=== PATIENT | female | born 1950 | race Caucasian/White ===

== ENCOUNTER 2017-01-19 17:02 | Inpatient (IN) | payer OTHER ==
[2017-01-19 17:39] LABS: BASO% 0.3 % (0.0-0.8); EOS# 0.72 X1000 (0.0-0.7); EOS% 3.2 % (0.0-10.0); HEMATOCRIT 41.1 % (37.0-47.0); HEMOGLOBIN 12.7 g/dL (12.0-16.0); IMM GRAN# 0.07 X1000 (0.0-0.04); IMM GRAN% 0.3 % (0.0-0.5); LYMPH# 4.19 X1000 (1.2-3.4); LYMPH% 18.4 % (20.5-51.1); MANUAL DIFF NEEDED? NO; MCH 29.7 PG (27-31); MCHC 30.9 g/dL (33-37); MCV 96.3 FL (81-99); MONO# 1.61 X1000 (0.11-0.59); MONO% 7.1 % (1.7-9.3); MPV 9.6 FL (7.4-10.4); NEUT% 70.7 % (42.2-75.2); PLT 459 X1000 (130-400); RBC 4.27 XMIL (4.2-5.4)
--- NOTE | 2017-01-19 18:02 | PROVIDER DOCUMENTATION ---
HPI-Abdominal Pain/GI Problem <Susan Ahuja - Last Filed: 01/19/17 20:55> - General Source: patient - History of Present Illness-ABD Nature of Presenting Problems: 66 y/o wf c/o abdominal pain in the lower quadrants x 2 days ago. States she has had > 10 BMs a day. States there is blood in the stool, but not every time, that is bright red, mostly with wiping. Reports subjective fevers and chills. Denies vomiting, but reports nausea. Hx of diverticulitis, last hospitalized in June 2016 for this. No use of antibiotics recently. Has had 4 colonoscopies, with the last being <Ana Holden - Last Filed: 01/20/17 00:02> - General Chief Complaint: Abdominal Pain Stated Complaint: DIVERTICULITIS Time Seen by Provider: 01/19/17 17:59 Allergies/Adverse Reactions: Patient Allergies Allergy/AdvReac Type Severity Reaction Status Date / Time morphine AdvReac Intermediate "MAKES ME Verified 01/19/17 19:46 CRAZY" Home Medications: Home Medication List Medication Instructions Recorded Confirmed Last Taken Type Diazepam 10 mg PO TID 06/17/16 01/19/17 01/18/17 History Ezetimibe [Zetia] 10 mg PO QAM 06/17/16 01/19/17 01/18/17 History Hum Insulin NPH/Reg Insulin Hm 8 unit SQ QPM 06/17/16 01/19/17 01/18/17 History [Novolin 70-30 100 Unit/ml Vial] Hum Insulin NPH/Reg Insulin Hm 16 unit SQ QAM 06/17/16 01/19/17 01/18/17 History [Novolin 70-30 100 Unit/ml Vial] Oxycodone HCl/Acetaminophen 1 each PO Q4H PRN PRN 06/17/16 01/19/17 01/18/17 History [Percocet 10-325 mg Tablet] PRAVAstatin [Pravachol] 40 mg PO QHS 06/17/16 01/19/17 01/18/17 History Pantoprazole [Protonix] 40 mg PO DAILY@0700 06/17/16 01/19/17 01/18/17 History Carvedilol [Coreg] 12.5 mg PO Q12HR #60 tablet 06/24/16 01/19/1701/18/17 Rx Lactobacillus Rhamnosus GG 1 each PO BID #84 capsule 06/24/16 01/19/17 01/18/17 Rx [Culturelle] Omeprazole 40 mg PO DAILY #90 capsule. 06/24/16 01/19/17 01/18/17 Rx Polyethylene Glycol 3350 [Miralax] 17 gm PO DAILY #0 powder, packet 06/24/1605/0201/18/17 Rx Review of Systems - Adult - REVIEW OF SYSTEMS - ADULT Constitutional: reports: see HPI, chills, fever, fatique Eyes: reports: no symptoms reported. denies: decreased vision, blurred vision, double vision, eye pain Ears, Nose, Mouth & Throat: reports: no symptoms reported. denies: ear pain, nose pain, throat pain Cardiovascular: reports: no symptoms reported. denies: chest pain Respiratory: reports: no symptoms reported. denies: cough, shortness of breath Gastrointestinal: reports: see HPI, abdominal pain, diarrhea, nausea, rectal bleeding, vomiting Genitourinary: reports: no symptoms reported. denies: dysuria, discharge, frequency, incontinence Musculoskeletal: reports: no symptoms reported. denies: bone pain, back pain, muscle aches Integumentary: reports: no symptoms reported. denies: rash Neurological: reports: no symptoms reported. denies: headache/migraines Psychiatric: reports: no symptoms reported Endocrine: reports: no symptoms reported Hematologic/Lymphatic: reports: no symptoms reported Allergic/Immunologic: reports: no symptoms reported All Other Systems: Reviewed and Negative <Ana Holden - Last Filed: 01/20/17 00:02> Past History - Adult - PAST MEDICAL HISTORY-ADULT Review of Records: reports: Old Records Reviewed, Nursing Assessment Review, Medications Reviewed Major Childhood Illnesses: reports: denies history Cardiovascular: reports: CAD (CABG), HTN Respiratory: reports: denies history Gastrointestinal: reports: diverticulosis Obstetrical/Gynecological: reports: denies history Genitourinary: reports: denies history Musculoskeletal: reports: denies history Neurological: reports: denies history Endocrine/Immune: reports: denies history Other Conditions: reports: denies history - PRIOR SURGERIES/PROCEDURES Surgical/Procedure History: reports: other (pancreatic, adrenal, spleen ) - FAMILY HISTORY Family History: reviewed, not pertinent - SOCIAL HISTORY Smoking: denies Substance Use: none/never Alcohol Use Frequency: never <Ana Holden Margie - Last Filed: 01/20/17 00:02> Physical Exam-General - PHYSICAL EXAM-ADULT Initial Vital Signs Reviewed: Yes - CONSTITUTIONAL General Appearance: appears well, alert, no apparent distress - EYES Eyes: PERRL/EOMI, pink conjunctivae - HEAD, EARS, NOSE, MOUTH & THROAT HENMT: normocephalic/atraumatic, moist mucous membranes - NECK Neck: non-tender, full range of motion, supple, normal inspection. negative: lymphadenopathy - RESPIRATORY Respiratory: chest non-tender, lungs clear, normal breath sounds, no pleuratic chest pain, no respiratory distress, no accessory muscle use. negative: respiratory distress, decreased breath sounds, accessory muscle use, crackles, rales, rhonchi, wheezing - CARDIOVASCULAR Cardiovascular: normal peripheral pulses, regular rate, rhythm - GASTROINTESTINAL (ABDOMEN) Abdominal Exam: normal bowel sounds, soft, no organomegaly, no pulsatile mass, tenderness (lower quadrant) - MUSCULOSKELETAL Extremity: normal gait Peripheral Pulses: dorsalis-pedis (R): 2+, dorsalis-pedis (L): 2+ - SKIN Integumentary: normal color, normal turgor, warm/dry - NEUROLOGIC Neurologic: grossly normal, no motor/sensory deficits - PSYCHIATRIC Psych/Mental Status: normal mood/affect, normal thought content, normal thought process, oriented x 3 <Ana Holden Margie - Last Filed: 01/20/17 00:02> Progress - EKG 1 Time of EKG reading by physician:: 19:17 EKG Read and Signed by:: Chapin Esquivel EKG Interpretation (*Must complete 3 of following elements*): Abnormal Rate: 89 Rhythm: NSR QRS: other (low voltage QRS) Comments: can not rule out anterior infarct, age undetermined. - CT/MRI 1 CT Study: Abdomen, Pelvis Impression: Abnormal (Proximal right ureter is dilated similar to 8-2-15. Proximal left ureter is dilated. Has developed since the prior exam. No renal stones. Cholecystectomy. Splenectomy. Partial pancreatectomy. Colitis to the descending and sigmoid colon. No abscess. No free air. Small fat filled anterior wall hernia. Aortic iliac graft.: Dr. Lawrence- radiologist) - CONSULTS/PCP/HOSPITALIST Notification #1 *Consult/PCP/Hospitalist*: Dr. Salgado- Hospitalist DMM Time Discussed: 20:59 Reason/Comments: ABD pain, diarrhea Consult Disposition: Will see in ED, Admit <Susan Ahuja - Last Filed: 01/19/17 20:55> - PLAN OF CARE/RESULTS Progress/Plan/Lab Results: Vital Signs Temp Pulse Resp BP Pulse Ox 01/19/17 22:28 84 18 112/85 97 01/19/17 21:45 87 14 143/71 97 01/19/17 21:29 88 14 143/71 98 01/19/17 20:00 86 22 140/60 97 01/19/17 19:41 88 14 129/51 100 01/19/17 19:27 86 19 142/71 99 01/19/17 17:13 99.4 F 104 H 18 159/61 92 L morphine Adverse Reaction (Intermediate, Verified 01/19/17 19:46) "MAKES ME CRAZY" Diazepam 10 mg PO TID 06/17/16 Ezetimibe [Zetia] 10 mg PO QAM 06/17/16 Hum Insulin NPH/Reg Insulin Hm [Novolin 70-30 100 Unit/ml Vial] 8 unit SQ QPM Hum Insulin NPH/Reg Insulin Hm [Novolin 70-30 100 Unit/ml Vial] 16 unit SQ QAM 06/17/16 Oxycodone HCl/Acetaminophen [Percocet 10-325 mg Tablet] 1 each PO Q4H PRN PRN PRAVAstatin [Pravachol] 40 mg PO QHS 06/17/16 Pantoprazole [Protonix] 40 mg PO DAILY@0700 06/17/16 Carvedilol [Coreg] 12.5 mg PO Q12HR #60 tablet 06/24/16 Lactobacillus Rhamnosus GG [Culturelle] 1 each PO BID #84 capsule 06/24/16 Omeprazole 40 mg PO DAILY #90 capsule. 06/24/16 Polyethylene Glycol 3350 [Miralax] 17 gm PO DAILY #0 powder, packet 06/24/16 Dietary Diet Clear Liquid Diet Start ThuJan 19 2155 I&O 01/18/17 01/19/17 01/20/17 06:59 06:59 06:59 Output Total 75 Balance -75 Laboratory 01/19/17 01/19/17 01/19/17 21:19 21:00 17:18 WBC 22.83 H RBC 4.27 Hgb 12.7 Hct 41.1 MCV 96.3 MCH 29.7 MCHC 30.9 L RDW Std Deviation 13.9 Plt Count 459 H MPV 9.6 Immature Gran % (Auto) 0.3 Neut % (Auto) 70.7 Lymph % (Auto) 18.4 L [place] % (Auto) 7.1 Eos % (Auto) 3.2 Baso % (Auto) 0.3 Immature Gran # (Auto) 0.07 H Neut # (Auto) 16.18 H Lymph # (Auto) 4.19 H [place] # (Auto) 1.61 H Eos # (Auto) 0.72 H Baso # (Auto) 0.06 Sodium Potassium 6.1 H* Chloride Carbon Dioxide Anion Gap BUN Creatinine Estimated GFR/1.73 m2 BUN/Creatinine Ratio Glucose Calculated Osmolality Calcium Total Bilirubin AST ALT Alkaline Phosphatase Total Protein Albumin Globulin Albumin/Globulin Ratio Amylase Lipase Urine Source CLEAN CATCH Urine Color YELLOW Urine Turbidity CLEAR Urine pH 5.0 Ur Specific [place] 1.011 Urine Protein NEGATIVE Ur Glucose (Stick) NEGATIVE Ur Ketones (Stick) NEGATIVE Urine Blood NEGATIVE Urine Nitrite NEGATIVE Urine Bilirubin NEGATIVE Urobilinogen Dipstick NORMAL Urine Leukocytes NEGATIVE Urine WBC (Auto) <10 Urine RBC (Auto) <10 U Epithel Cells (Auto) <10 Urine Bacteria (Auto) NEGATIVE 01/19/17 17:18 WBC RBC Hgb Hct MCV MCH MCHC RDW Std Deviation Plt Count MPV Immature Gran % (Auto) Neut % (Auto) Lymph % (Auto) [place] % (Auto) Eos % (Auto) Baso % (Auto) Immature Gran # (Auto) Neut # (Auto) Lymph # (Auto) [place] # (Auto) Eos # (Auto) Baso # (Auto) Sodium 134 L Potassium 6.4 H* Chloride 98 Carbon Dioxide 25 Anion Gap 11 BUN 47 H Creatinine 1.6 H Estimated GFR/1.73 m2 32 BUN/Creatinine Ratio 29 Glucose 147 H Calculated Osmolality 283 Calcium 9.9 Total Bilirubin 0.22 AST 18 ALT 15 Alkaline Phosphatase 111 H Total Protein 7.2 Albumin 3.8 Globulin 3.4 Albumin/Globulin Ratio 1.1 Amylase 22 Lipase 8 L Urine Source Urine Color Urine Turbidity Urine pH Ur Specific [place] Urine Protein Ur Glucose (Stick) Ur Ketones (Stick) Urine Blood Urine Nitrite Urine Bilirubin Urobilinogen Dipstick Urine Leukocytes Urine WBC (Auto) Urine RBC (Auto) U Epithel Cells (Auto) Urine Bacteria (Auto) Orders Category Date Time Status Admit - [facility] - [facility] Routine AdmDCTranf 01/19/17 23:51 Ordered Activity - Up with Assistance ORDERED Care 01/19/17 23:51 Active Apply Mechanical Device [QM] ORDERED Care 01/19/17 23:51 Active FSBS/Accucheck Result AC + HS Care 01/19/17 23:51 Active Intake and Output-Strict ORDERED Care 01/19/17 23:51 Active Nursing- MD Consult Request ROUTINE Care 01/19/17 23:51 Active Saline Loc NOW Care 01/19/17 18:06 Completed Vital Signs Order Q 8-HR ASSESS Care 01/19/17 23:51 Active MD [Physician/Provider Consults] Routine Cons 01/19/17 23:51 Ordered Clear Liquid Diet Diet 01/19/17 21:55 Active ABDOMEN/PELVIS W/O CONTRAST [CT] Stat Exams 01/19/17 18:06 Completed AMYLASE [CHEM] Stat Lab 01/19/17 17:18 Completed BASIC METABOLIC PANEL [CHEM] Routine Lab 01/20/17 06:00 Ordered CBC WITH DIFF [HEME] Routine Lab 01/20/17 06:00 Ordered CBC WITH ELECTRONIC DIFF [HEME] Stat Lab 01/19/17 17:18 Completed COMPREHENSIVE METABOLIC PANEL [CHEM] Stat Lab 01/19/17 17:18 Completed LACTOFERRIN STOOL [DELONG] Stat Lab 01/19/17 23:51 Uncollected LIPASE [CHEM] Stat Lab 01/19/17 17:18 Completed POTASSIUM [CHEM] Stat Lab 01/19/17 21:00 Completed STOOL CULTURE [RM] Stat Lab 01/19/17 18:47 Uncollected Stool [C DIFF TOXIN] [STOOL] Stat Lab 01/19/17 18:47 Uncollected TSH Routine Lab 01/20/17 06:00 Ordered UA Reflex [URINALYSIS W/POSS RFLX CULT] [URINALYSIS] Lab 01/19/17 21:19 Completed Stat 0.9% Sodium Chloride Inj [Ns] 1,000 ml Med 01/19/17 23:51 Ordered IV 100 mls/hr 0.9% Sodium Chloride Inj [Ns] 1,000 ml Med 01/19/17 18:06 Discontinued IV 999 mls/hr Ciprofloxacin 400 mg/D5w [Cipro 400 mg/D5w] 200 ml Med 01/19/17 23:51 Ordered IV Q12H Diazepam [Valium] Med 01/20/17 09:00 Ordered 10 mg PO TID Hydromorphone [Dilaudid] Med 01/19/17 18:46 Discontinued 1 mg IV NOW ONE Insulin Human Regular [Humulin R] Med 01/20/17 07:00 Ordered See Protocol SUBQ 0700,1100,1600,2100 Levofloxacin 750 mg/D5w [Levaquin 750 mg/D5w] 150 ml Med 01/19/17 20:57 Discontinued IV NOW Metronidazole 500 mg/Ns [Flagyl 500 mg/Ns] 100 ml Med 01/19/17 20:57 Discontinued IV NOW Metronidazole 500 mg/Ns [Flagyl 500 mg/Ns] 100 ml Med 01/20/17 05:00 Ordered IV Q8HR Omeprazole [Omeprazole] Med 01/20/17 09:00 Ordered 40 mg PO DAILY Ondansetron [Zofran] Med 01/19/17 18:46 Discontinued 4 mg IV NOW ONE Oxycodone/APAP 10 mg/325 mg [Percocet-10] Med 01/19/17 23:51 Ordered 1 each PO Q4H PRN PRN Sodium Polystyrene [Kayexalate] Med 01/19/17 18:18 Discontinued 30 gm PO NOW ONE Telemetry [OM.EQ] Routine Oth 01/19/17 23:51 Active Transfer/Admit Order [TRANSFER] Routine Transfer 01/19/17 21:54 Completed <Ana Holden - Last Filed: 01/20/17 00:02> Departure <Susan Ahuja - Last Filed: 01/19/17 20:55> - Departure Time of Disposition Order: 21:03 Certified Medical Emergency: Emergent <Ana Holden - Last Filed: 01/20/17 00:02> - Departure DIAGNOSIS: Colitis, Hyperkalemia Leukocytosis Qualifiers: Leukocytosis type: lymphocytosis Qualified Code(s): D72.820 - Lymphocytosis ( symptomatic) Disposition: ADMITTED INPATIENT 09 Condition: Stable Attestation - Physician/ KOMAL Attestation Patient care was provided by Advanced Practice Provider:: Yes Advanced Practice Provider:: Ana Holden Advanced Practice Provider documentation review:: The Mid-level provider documentation, treatment plan and medical decision making was reviewed by the physician who agrees with all treatment and medical decision making by the MLP. <Ana Holden - Last Filed: 01/20/17 00:02> Physician Attestation
[2017-01-19 18:04] LABS: ALBUMIN 3.8 g/dL (3.5-5.0); CALCIUM 9.9 mg/dL (8.8-10.2); POTASSIUM 6.4 mmol/L (3.5-5.1); TOTAL BILIRUBIN 0.22 mg/dL (0.20-1.00); TOTAL PROTEIN 7.2 g/dL (6.3-8.3)
[2017-01-19] MEDS ORDERED: NS 1,000 ML IV ONE (18:06)
[2017-01-19] MEDS ORDERED: KAYEXALATE PO ONE (18:18)
[2017-01-19] MEDS ORDERED: DILAUDID IV ONE (18:46)
[2017-01-19] MEDS ORDERED: ZOFRAN IV ONE (18:46)
[2017-01-19] MEDS ORDERED: LEVAQUIN 750 MG/D5W 150 ML IV ONE (20:57)
[2017-01-19] MEDS ORDERED: FLAGYL 500 MG/NS 100 ML IV ONE (20:57)
--- NOTE | 2017-01-19 21:12 | Diag Imaging Result Document ---
PROCEDURE NAME: ABDOMEN/PELVIS W/O CONTRAST - 01/19/2017 STUDY: CT abdomen and pelvis without oral or intravenous contrast. PROTOCOL: Dose reduction protocol. COMPARISON: Compared to 06/17/2016 The gallbladder has been removed. The spleen apparently has been removed as has a portion of the pancreas. No focal hepatic abnormality identified on this noncontrasted exam. Normal adrenal glands. There is moderate to prominent hydronephrosis to the proximal and mid right ureter to the level of the crossing of the iliac graft. This is similar to the prior exam. Moderate left proximal hydronephrosis has developed since the prior exam. This also extends to the level of the graft. There is an aortic iliac graft similar to the prior exam. No renal stones. There is thickening to the wall of the descending and sigmoid colon. There are scattered diverticula. No bowel obstruction. No abscess. No free air. There is a small fat filled anterior abdominal wall hernia. The uterus has been removed or is small. The urinary bladder is distended and appears normal. IMPRESSION: 1. Descending and sigmoid colitis. 2. Cholecystectomy, splenectomy, and partial pancreatectomy. 3. Bilateral hydronephrosis to the proximal and mid ureters. Transition occurs at the level of the iliac grafts. 4. Small fat filled anterior abdominal wall hernia. A preliminary report was given at 8:41 p.m.
[2017-01-19 21:29] LABS: URINE CULTURE NEEDED? NO; URINE MICRO REVIEW NEEDED? NO; URINE SOURCE CLEAN CATCH
[2017-01-19 21:36] LABS: BILIRUBIN URINE NEGATIVE (NEGATIVE); BLOOD URINE NEGATIVE (NEGATIVE); COLOR YELLOW; GLUCOSE URINE NEGATIVE (NEGATIVE); LEUKOCYTES URINE NEGATIVE (NEGATIVE); NITRITE URINE NEGATIVE (NEGATIVE); PROTEIN URINE NEGATIVE (NEGATIVE); SP GRAVITY URINE 1.011; TURBIDITY URINE CLEAR (CLEAR); UROBILINOGEN URINE NORMAL (NORMAL)
[2017-01-19 21:38] LABS: UR EPITHELIAL CELLS <10 /HPF (<10); URINE BACTERIA NEGATIVE /HPF; URINE RBC <10 /HPF (<10); URINE WBC <10 /HPF (<10)
[2017-01-20] MEDS: PERCOCET-10 PO PRN ×5 (00:08→20:26)
[2017-01-20] MEDS: CIPRO 400 MG/D5W 200 ML IV SCH ×2 (01:02→12:08)
[2017-01-20] MEDS: NS 1,000 ML IV SCH ×3 (01:03→20:27)
--- NOTE | 2017-01-20 03:57 | HISTORY AND PHYSICAL ---
CHIEF COMPLAINT: Diarrhea, abdominal cramping x3 days. HISTORY OF PRESENTING ILLNESS: A 66-year-old female with a history of diabetes mellitus type 2, hyperlipidemia, and GERD who presented to the emergency department complaining of diarrhea that he had been ongoing for the past 3 days. She states that she was getting weak. She also noticed some mild blood at times when she wiped. She states that the symptoms were worsening. Subsequently, she had come to the emergency department. In the ER, she was evaluated. She was found to have an elevated potassium which was stabilized in the ER. Due to her presenting symptoms, it was thought that she would need hospitalization for further management. At the time of my examination, she had denied any headache, fever, chills, chest pain, shortness of breath, hemoptysis, or any weight changes but complained of having diarrhea and feeling weak. PAST MEDICAL HISTORY: Includes diabetes mellitus type 2, hyperlipidemia, GERD. PAST SURGICAL HISTORY: Cholecystectomy, splenectomy, partial pancreatectomy. ALLERGIES: To morphine. CURRENT MEDICATIONS: As listed in the MAR. SOCIAL HISTORY: She denies any history of smoking, alcohol, or illicit drug use. FAMILY HISTORY: Positive for coronary artery disease in her father. REVIEW OF SYSTEMS: Twelve point review of systems listed as in the HPI. Other systems negative. PHYSICAL EXAMINATION: GENERAL: Cooperative, friendly female. She is resting comfortably now. VITAL SIGNS: Temperature 99.4 degrees, pulse 104, respirations 18, blood pressure 159/61, she is saturating 99%. HEENT: Atraumatic, normocephalic. Extraocular movements intact. PERRLA. NECK: Supple. CHEST: Clear to auscultation. CARDIOVASCULAR: Regular rate and rhythm. ABDOMEN: Soft. Positive bowel sounds. EXTREMITIES: No edema. NEUROLOGIC: She is awake, alert, oriented x3. : No bladder distention. SKIN: Warm. LABORATORIES AND STUDIES: WBC 22.83, hemoglobin 12.7, hematocrit 41.1, platelets 459,000. Sodium 134, potassium 6.4, chloride 98, CO2 is 25, BUN is 47, creatinine is 1.6, glucose is 147. ASSESSMENT: A 66-year-old female with a history of diabetes mellitus type 2, hyperlipidemia, and gastroesophageal reflux disease who presented to the emergency department with a 3 day history of persistent diarrhea. She had presented to the emergency department where she was found to have elevated potassium and this was stabilized in the emergency room. Due to her presenting symptoms, it was thought that she would need hospitalization for further management. 1. Acute diarrhea. 2. Colitis. 3. Hyperkalemia. 4. Diabetes mellitus type 2. 5. Acute kidney injury. PLAN: 1. We will admit patient to medical floor with telemetry. 2. We will continue supportive treatment with IV fluids, hydration, antiemetics. 3. We will monitor her electrolytes closely and make sure her potassium is trending down. 4. We will monitor blood glucose and continue patient on sliding scale insulin regimen. 5. We will monitor renal function and continue with hydration. 6. We will put patient on DVT prophylaxis with SCDs. 7. We will continue to follow and reassess.
[2017-01-20 05:18] LABS: BASO% 0.3 % (0.0-0.8); EOS# 1.69 X1000 (0.0-0.7); EOS% 8.1 % (0.0-10.0); HEMATOCRIT 36.8 % (37.0-47.0); HEMOGLOBIN 11.1 g/dL (12.0-16.0); IMM GRAN# 0.07 X1000 (0.0-0.04); IMM GRAN% 0.3 % (0.0-0.5); LYMPH# 5.36 X1000 (1.2-3.4); LYMPH% 25.7 % (20.5-51.1); MANUAL DIFF NEEDED? YES; MCH 29.4 PG (27-31); MCHC 30.2 g/dL (33-37); MCV 97.6 FL (81-99); MONO# 1.88 X1000 (0.11-0.59); MPV 9.5 FL (7.4-10.4); NEUT% 56.6 % (42.2-75.2); PLT 467 X1000 (130-400); RBC 3.77 XMIL (4.2-5.4)
[2017-01-20 05:27] LABS: EOS 8 % (1-10); LYMPHS 24 % (21-51); MONO 8 % (1-9)
[2017-01-20] MEDS: FLAGYL 500 MG/NS 100 ML IV SCH ×3 (05:30→20:23)
[2017-01-20 05:43] LABS: CALCIUM 9.6 mg/dL (8.8-10.2); POTASSIUM 5.5 mmol/L (3.5-5.1)
[2017-01-20] MEDS: HUMULIN R SUBQ SCH ×4 (08:50→22:32)
[2017-01-20] MEDS: VALIUM PO SCH ×3 (09:33→17:30)
[2017-01-20] MEDS: PRILOSEC PO SCH (09:33)
--- NOTE | 2017-01-20 15:43 | PROGRESS NOTE ---
DATE: 01/20/2017 SUBJECTIVE: This patient states that she is feeling better. She is still complaining of abdominal bloating and right-sided abdominal pain. This patient states that she has been noticing blood in the stools. Gastroenterology department has been consulted and will continue with the antibiotics. OBJECTIVE: Vital Signs: Temperature 97.6 degrees, pulse 64, respiratory rate 18, blood pressure 112/62, oxygen saturation 100% on 2 L of nasal cannula. HEENT: Head normocephalic. No trauma. PERRLA. Neck: Supple. No JVD. No masses. Central trachea. Chest: Clear to auscultation. No wheezing. No rales. Cardiovascular: RRR. No murmurs. Abdomen: Soft. Mild tenderness to palpation in the right side of the abdomen. No signs of peritoneal irritation. Mild distention. Positive bowel sounds. Extremities: No edema. No clubbing. No cyanosis. Neurological: The patient is alert and oriented x3. No focal neurological deficits. LABORATORY: WBC 20.8, hemoglobin 11.1, hematocrit 36.8, platelets 467,000. Sodium 141, potassium 5.5, chloride 104, bicarbonate 27, BUN 33, creatinine 1.3, glucose 117, calcium 9.6. TSH 1.49. ASSESSMENT AND PLAN: 1. Descending and sigmoid colitis. This patient is still complaining of mild abdominal discomfort on the left side. I will continue for now with ciprofloxacin and Flagyl IV. Gastroenterology department has been consulted. We will follow their recommendations. This patient states that she has had bloody stools before. 2. Acute diarrhea. Apparently this is getting better. She is still having diarrhea. We will continue with IV hydration and monitoring the electrolytes. 3. Hyperkalemia. Compared with yesterday it looks better. We will continue to monitor. No treatment for now. 4. Type 2 diabetes. This is controlled. Continue with IV fluids. I will continue with sliding scale insulin. 5. Acute kidney injury. This is getting better. The creatinine decreased from 1.6 to 1.3. Will continue to monitor. 6. Gastroesophageal reflux disease. Continue with PPIs.
[2017-01-21] MEDS: CIPRO 400 MG/D5W 200 ML IV SCH ×2 (01:17→14:15)
[2017-01-21] MEDS: PERCOCET-10 PO PRN ×4 (03:09→19:46)
[2017-01-21] MEDS: NS 1,000 ML IV SCH ×2 (03:10→15:51)
[2017-01-21] MEDS: FLAGYL 500 MG/NS 100 ML IV SCH ×4 (05:36→23:38)
[2017-01-21] MEDS: HUMULIN R SUBQ SCH ×5 (06:40→23:37)
[2017-01-21 07:39] LABS: MANUAL DIFF NEEDED? NO
[2017-01-21 07:44] LABS: BASO% 0.3 % (0.0-0.8); EOS# 2.51 X1000 (0.0-0.7); EOS% 14.1 % (0.0-10.0); HEMATOCRIT 37.1 % (37.0-47.0); HEMOGLOBIN 11.2 g/dL (12.0-16.0); IMM GRAN# 0.04 X1000 (0.0-0.04); IMM GRAN% 0.2 % (0.0-0.5); LYMPH# 4.88 X1000 (1.2-3.4); LYMPH% 27.4 % (20.5-51.1); MCH 29.8 PG (27-31); MCHC 30.2 g/dL (33-37); MCV 98.7 FL (81-99); MONO# 1.27 X1000 (0.11-0.59); MONO% 7.1 % (1.7-9.3); MPV 9.2 FL (7.4-10.4); NEUT% 50.9 % (42.2-75.2); PLT 486 X1000 (130-400); RBC 3.76 XMIL (4.2-5.4)
[2017-01-21 08:07] LABS: AGAP 10; ALBUMIN 3.1 g/dL (3.5-5.0); ALKALINE PHOSPHATASE 80 U/L (32-104); BUN 14 mg/dL (8-22); CALCIUM 9.2 mg/dL (8.8-10.2); CHLORIDE 105 mmol/L (98-107); COSMO 283; GOT 11 U/L (10-30); GPT 9 U/L (10-36); POTASSIUM 4.8 mmol/L (3.5-5.1); SODIUM 141 mmol/L (136-145); TCO2 26 mmol/L (25-35); TOTAL BILIRUBIN 0.13 mg/dL (0.20-1.00); TOTAL PROTEIN 6.1 g/dL (6.3-8.3)
[2017-01-21] MEDS: VALIUM PO SCH ×3 (08:32→17:51)
[2017-01-21] MEDS: PRILOSEC PO SCH (08:32)
--- NOTE | 2017-01-21 11:26 | CONSULTATION ---
DATE OF CONSULTATION: 01/21/2017 CHIEF COMPLAINT: Diarrhea, abdominal cramps for 3-4 days. HISTORY OF PRESENT ILLNESS: This is a 66-year-old lady with a history of diabetes mellitus, presented to the emergency room with lower abdominal pain and a small amount of blood in the stool when she was wiped. She was admitted for further evaluation because CT scan showed colitis in the descending colon and sigmoid colon. PAST MEDICAL HISTORY: Diabetes type 2, hyperlipidemia, GERD. PAST SURGICAL HISTORY: Cholecystectomy, splenectomy, and partial pancreatectomy. ALLERGIES: Allergic to morphine. CURRENT MEDICATION: As listed in MAR. SOCIAL HISTORY: Denies any history of smoking, alcohol, or illicit drug use. FAMILY HISTORY: Positive for coronary artery disease. No history of inflammatory bowel disease or colon cancer. REVIEW OF SYSTEMS: A 12 point review was negative. PHYSICAL EXAMINATION: General: Reveals a pleasant lady, cooperative, resting comfortably. Vital signs: She is afebrile today. Pulse of 80, respiration 18, blood pressure 159/60, O2 saturation 99%. HEENT: No scleral icterus or conjunctival pallor. Neck: Supple. Trachea midline. Heart: Normal first and second heart sounds. Lungs: Clear. Abdomen: Minimally tender in the left lower quadrant. Bowel sounds present and normal. Extremities: Unremarkable. LABORATORY DATA: White count 22,000, normal hematocrit at 41. BUN 47, creatinine 1.6. IMPRESSION: 1. This is a 66-year-old lady with a history of diabetes type 2, presents with 3-day history of left lower quadrant abdominal pain and some blood stained stools. Her hematocrit is stable. It is either ischemic colitis or infectious colitis. She is actually doing better. Continue the current management. We will examine her colon after her white count comes back or if she gets any worse clinically. To me she said she is feeling much better. 2. Hyperkalemia. 3. Renal insufficiency. 4. Diabetes mellitus. PLAN: Our recommendation is continue IV fluid hydration and sliding scale insulin. We will follow and decide when to do a colonoscopy.
--- NOTE | 2017-01-21 13:37 | CONSULTATION ---
DATE OF CONSULTATION: 01/21/2017 REQUESTING PHYSICIAN: Dr. Hussein Sim. HISTORY OF PRESENT ILLNESS: Please patient is well known to me. I evaluated her mid last summer and I think in June, if my memory serves me, she had a CT scan that admission, was sick, and in the ICU. She was found to have bilateral hydronephrosis down to the iliac grafts placed by Dr. Tao. He was evaluated by Dr. Gonzales, who is her usual urologist, who tried to put in a standard retrograde, something of that nature. The patient claims he said that he could not get 1 in from starting in, she did need 1. Dr. Tao advised that there was no significant obstruction. There was hydro from the June 17 CT as compared to 01/19/2017 and there is no stated change on the reports and BUN and creatinine apparently are normal. Either way, she was admitted with descending left colitis of unstated etiology with a 17,000 white count, on antibiotic management. ALLERGIES: Are stated to be morphine. MEDICATIONS: Humulin R, Icar C, Lactobacillus, carvedilol, cholecalciferol, diazepam, Cipro, Flagyl, omeprazole, oxycodone, APAP, and a saline drip. I see no other listed medications for this admission. 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 PAST SURGICAL HISTORY: Includes an aortic aneurysm with aortobifemoral repair, pancreatectomy, adrenalectomy, suggested splenectomy on the CT. 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 Coronary bypass grafting and gallbladder attempted stent placement in the past. SOCIAL HISTORY: Counseled for nutrition. She is a prior historic smoker to 3 packs per day for many years and a nondrinker. The patient is disabled and retired. Does not exercise. Drinks coffee and tea. FAMILY HISTORY: No known relevant family history of kidney failure or kidney obstruction. She does have family members with diabetes, high blood pressure, and history of cancer. FAMILY PHYSICIAN: Dionicio Velasquez. REVIEW OF SYSTEMS: Constitutional: General fatigue and illness with left abdominal pain supported by the CT findings of left colitis, possible ischemic bowel disease from her history. Head and neck: No new loss of vision. Ears, Nose, and Throat: No new problems. Cardiac: No current chest pain. She does have high blood pressure. Respiratory: No shortness of breath. 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 Genitourinary: See history of present illness. Musculoskeletal: No arthralgias at this time. Neurologic: She has no history of stroke and no numbness, tingling, or radiculopathy. Psychologic: History of anxiety and depression. Endocrine: Significant for diabetes and probably cholesterol, hot flushes. Hematologic: Elevated white count. Allergies: Stated to be medicines/morphine. PHYSICAL EXAMINATION: Vital Signs: Revealed temperature max today 98.2, pulse 84, respirations 18, blood pressure 128/52, pulse 67, O2 saturation is 100%. She is receiving nasal cannula O2. HEENT: No head and neck masses are visibly apparent. Heart: With a regular rate. Respiratory: No respiratory distress at rest. Abdomen: With left abdominal tenderness, left upper quadrant and left lower quadrant with deep pressure. No guarding. No rebound. No flank pain. Genitourinary: As per CT scan review 01/20/2016 films compared to 06/17/2016 film, so nominal minimal hydronephrosis with normal BUN and creatinine noted relevant to that discussion of 14 in 0.9 respectively. GFR greater than 60 mL which is normal and CT unchanged as stated. Extremities: The range of motion of upper and lower extremities is acceptable for her age. Neurological: She is alert, oriented. She is pleasant. She does not at this time seem depressed or anxious about the issue. Obviously wants to get well and get out of the hospital as soon as possible. IMPRESSION: Bilateral hydronephrosis from the kidney down to the iliac vessels with inconsequential changes in renal function from relative narrowing or functional narrowing of the ureter, scarring from the iliac aortobifemoral bypass. PLAN: The plan for now is to do nothing because the patient wants nothing done. There is no evidence that intervention is going to help her as she has a normal BUN and creatinine at the moment. But either way, whenever we inquire about this illness she always brings up what Dr. Gonzales said. She certainly can see him. He is her regular doctor for this concern. But at the moment, there is really nothing to be done here at this time and if she continues on this path her health is going to precluded much intervention anyway in the near future. So, we are happy to follow up with her in the office if she wishes to, but when she saw us before she had decided to do nothing either way. We thank you for the referral.
--- NOTE | 2017-01-21 13:41 | PROGRESS NOTE ---
DATE: 01/21/2017 SUBJECTIVE: This patient states that she is feeling much better. She is not complaining about abdominal pain today. She does have abdominal distention and bloated, but compared with yesterday, she is much better. She is still having increased WBC. For now, we will continue with the same treatment. Probably this patient will be discharged tomorrow. OBJECTIVE: Vital Signs: Temperature 98.1, pulse 78, respiratory rate 20, blood pressure 137/49, oxygen saturation 100% on 2 L of nasal cannula. HEENT: Head normocephalic. No trauma. PERRLA. Neck: Supple. No JVD. No masses. Central trachea. Chest: Clear to auscultation. No wheezing. No rales. Cardiovascular: RRR. No murmurs. Abdomen: Soft, mild tenderness to palpation in the left side of the abdomen. No signs of peritoneal irritation. Mild to moderate distention. Positive bowel sounds. Extremities: No edema. No clubbing. No cyanosis. Neurological: The patient is alert and oriented x3. No focal neurological deficits. LABORATORY: WBC 17.8, hemoglobin 11.2, hematocrit 37.1, platelets 486. Sodium 141, potassium 4.8, chloride 105, bicarbonate 26, BUN 14, creatinine 0.9, glucose 113, calcium 9.2. Albumin 3.1. ASSESSMENT AND PLAN: 1. Descending and sigmoid colitis. This patient is not complaining today of abdominal pain, just upon palpation. I will continue for now with ciprofloxacin and Flagyl IV. Gastroenterology department is on board. We will continue to monitor and follow with the recommendation of gastroenterology. 2. Acute diarrhea. This is better, we will continue with IV hydration and monitoring the electrolytes. 3. Hyperkalemia, resolved. 4. Type 2 diabetes. This is controlled. Continue with IV fluids. 5. Acute kidney injury. This is getting better, the BUN and creatinine is normal today. 6. Gastroesophageal reflux disease. Continue with proton pump inhibitors.
--- NOTE | 2017-01-21 14:34 | PROGRESS NOTE ---
DATE: 01/21/2017 SUBJECTIVE: Patient currently resting in bed. Her abdominal pain is improving. She denies any fevers or rigors or chills. Denies any blood in the stools. OBJECTIVE: Vital signs: Temperature 98.1, pulse rate, blood pressure 137/49, saturating 89% on 2 L nasal cannula. General: Moderately built, moderately nourished, lying in bed, in no acute distress. HEENT: Mild pallor. No icterus. Neck: Supple. Abdomen: Soft, nontender, nondistended. Bowel sounds are present but hypoactive. No rebound. No guarding. Extremities: No cyanosis, clubbing, edema. Neurologic: She is alert, awake, oriented. LABORATORY DATA: Hemoglobin and hematocrit is 11.2, 37.1, white count of 17.8, platelet count of 486,000. MCV of 90.7. Sodium 140, potassium 4.8, chloride 105, bicarbonate 22 , anion gap 10, BUN of 14, creatinine 0.9, glucose 113, calcium 9.2, total bilirubin is 0.13, AST 11 , ALT 9. Alkaline phosphatase is 80. Total protein 6.1, albumin of 3.1, blood glucose of 178. Urinalysis is clear. Her stool for C. difficile toxin was negative and stool cultures preliminary negative for pathogens. IMAGING STUDIES: CT of abdomen and pelvis on 01/19/2017 showed: 1. Descending sigmoid colitis. 2. Cholecystectomy. 3. Splenectomy. 4. Partial pancreatectomy. 5. Bilateral hydronephrosis to the proximal and mid ureters. Transition occurs at the level of the iliac crest. 6. Small fat filled anterior abdominal wall hernia. 7. Aortic iliac graft was seen on imaging. 8. Scattered diverticula noted in the colon. 9. Urinary bladder is distended. Appears normal. IMPRESSION AND PLAN: 1. Left-sided colitis likely ischemic colitis in the setting of history of known peripheral arterial disease. History of chronic smoking for more than 30 years and quit about 10 years ago. 2. Constipation. 3. Diverticulosis. 4. Leukocytosis. 5. Bilateral hydronephrosis seen by Dr. Ochoa and he thinks it is chronic and nothing needs to be done as patient has stable BUN and creatinine. The patient follows with Dr. Gonzales for these symptoms. 6. Diabetes mellitus and mild renal insufficiency. RECOMMENDATIONS: 1. We will continue the patient on IV fluids, IV antibiotics. We will start on Culturelle b.i.d. We will keep her on MiraLAX twice daily and she will continue GI prophylaxis for now. 2. The patient will follow with us in the clinic in a few weeks and at that time , we will plan for a complete colonoscopy. 3. The patient was counseled to avoid constipation and take a high-fiber diet. Avoid corn, nuts, and seeds in diet. 4. The above was discussed with the patient and family. MTDRichard
[2017-01-21] MEDS: CULTURELLE PO SCH ×3 (15:00→23:37)
[2017-01-21] MEDS: MIRALAX PO SCH ×3 (15:00→23:37)
[2017-01-21] MEDS: COREG PO SCH (20:08)
[2017-01-22] MEDS: CIPRO 400 MG/D5W 200 ML IV SCH (01:12)
[2017-01-22] MEDS: PERCOCET-10 PO PRN ×2 (01:15→08:21)
[2017-01-22] MEDS: FLAGYL 500 MG/NS 100 ML IV SCH (04:49)
[2017-01-22] MEDS: HUMULIN R SUBQ SCH ×2 (05:59→11:07)
[2017-01-22] MEDS: VALIUM PO SCH (06:16)
[2017-01-22] MEDS ORDERED: VALIUM PO SCH (07:00)
[2017-01-22 07:14] LABS: MANUAL DIFF NEEDED? NO
[2017-01-22 07:21] LABS: BASO% 0.3 % (0.0-0.8); EOS# 2.49 X1000 (0.0-0.7); EOS% 15.8 % (0.0-10.0); HEMATOCRIT 36.4 % (37.0-47.0); HEMOGLOBIN 10.9 g/dL (12.0-16.0); IMM GRAN# 0.04 X1000 (0.0-0.04); IMM GRAN% 0.3 % (0.0-0.5); LYMPH# 4.63 X1000 (1.2-3.4); LYMPH% 29.4 % (20.5-51.1); MCH 29.1 PG (27-31); MCHC 29.9 g/dL (33-37); MCV 97.3 FL (81-99); MONO# 1.51 X1000 (0.11-0.59); MONO% 9.6 % (1.7-9.3); MPV 9.1 FL (7.4-10.4); NEUT% 44.6 % (42.2-75.2); PLT 514 X1000 (130-400); RBC 3.74 XMIL (4.2-5.4)
[2017-01-22 07:46] LABS: CALCIUM 9.4 mg/dL (8.8-10.2); POTASSIUM 4.7 mmol/L (3.5-5.1); TOTAL BILIRUBIN 0.13 mg/dL (0.20-1.00); TOTAL PROTEIN 5.8 g/dL (6.3-8.3)
[2017-01-22 08:03] VITALS: BP 141/56
[2017-01-22] MEDS: COREG PO SCH (08:21)
[2017-01-22] MEDS: MIRALAX PO SCH (08:21)
[2017-01-22] MEDS: PRILOSEC PO SCH (08:21)
[2017-01-22] MEDS: CULTURELLE PO SCH (08:21)
[2017-01-22] MEDS ORDERED: ICAR-C PO SCH (11:00)
[2017-01-22] MEDS: NS 1,000 ML IV SCH (11:08)
--- NOTE | 2017-01-22 11:24 | PROGRESS NOTE ---
DATE: 01/22/2017 SUBJECTIVE: Patient is currently resting in bed. She is getting better. She is eating a little better this morning. OBJECTIVE: Vital Signs: Temperature 97.5 degrees, pulse of 61 respiratory rate 16, blood pressure 141/56, saturating 99% on 2L nasal cannula. General: Well-developed, well-nourished, lying in bed in no acute distress. HEENT: Pale conjunctivae. No icterus. Neck: Supple. Abdomen: Soft, nontender, nondistended. Bowel sounds present. No rebound. Extremities: No cyanosis, clubbing. Neurologic: She is alert, awake, oriented. LABORATORIES: Hemoglobin and hematocrit are 10.9 and 36.4, white count 15.76, platelet count of 514,000. Sodium of 142, potassium 4.7, chloride 105, bicarbonate 29, anion gap of 8, BUN of 10, creatinine 1, glucose of 109, calcium 9.4, total bilirubin is 0.13, AST 12, ALT 8, alkaline phosphatase 74, total protein 5.8, albumin of 3. Urinalysis is negative. IMPRESSION AND PLAN: 1. Left-sided colitis in descending colon and sigmoid colon. In the setting of known history of peripheral arterial disease, history of chronic smoking for more than 30 years and quit about 10 years ago, likely representing ischemic colitis. 2. Constipation. 3. Diverticulosis. 4. Leukocytosis, which is getting better. 5. Bilateral hydronephrosis seen by Dr. Ochoa as likely chronic. Patient follows with Dr. Gonzales as an outpatient. 6. Diabetes mellitus and mild renal insufficiency. 7. Mild anemia. RECOMMENDATIONS: 1. Will continue with IV antibiotics and Culturelle p.o. b.i.d. She will need to be on Cipro and Flagyl for 7 days after discharge. She will continue on MiraLAX twice daily and hold for more than 3 Bms in 24 hours. 2. She is already on PPI once daily for 8-12 weeks, in addition to Zantac once at bedtime. 3. The patient will be started on Iron-C 1 capsule p.o. b.i.d. for mild anemia. 4. Patient will follow up with me in 4 weeks after discharge for outpatient colonoscopy. [facility]
[2017-01-22] MEDS ORDERED: FLAGYL PO SCH (13:00)
[2017-01-22] MEDS ORDERED: CIPRO PO SCH (21:00)
--- NOTE | 2017-01-23 11:19 | DISCHARGE SUMMARY ---
ADMISSION DATE: 01/19/2017 DISCHARGE DATE: 01/22/2017 CONSULTATIONS: 1. Dr. Louis Villa with Gastroenterology. 2. Dr. Ton Ochoa with Urology. PERTINENT PROCEDURES: Abdomen/pelvis CT showed descending and sigmoid colitis, cholecystectomy, splenectomy, and partial pancreatectomy, bilateral hydronephrosis to the proximal and mid ureters. Transition occurs at the level of the iliac grafts. Small, fat-filled anterior abdominal wall hernia. DISCHARGE DIAGNOSES: 1. Descending and sigmoid colitis. Patient followed by Gastroenterology, going home on p.o. Flagyl and Cipro, will continue on Culturelle as well as MiraLAX, and will follow up with Dr. Sim in 4 weeks for outpatient colonoscopy. 2. Anemia. Continue with Icar-C. 3. Acute diarrhea. Patient was given IV fluids and improved. 4. Hyperkalemia, resolved. 5. Diabetes mellitus, type 2, controlled. 6. Acute kidney injury, resolving. 7. Gastroesophageal reflux disease. Continue PPI. HOSPITAL COURSE: Briefly, Ms. Diego is a 66-year-old female with a past medical history of diabetes mellitus, type 2, hyperlipidemia, and GERD who presented to the ED with complaints of diarrhea that had been ongoing for 3 days. She was getting weak. She noticed some blood at times when she wiped. She stated her symptoms were worse, so she had to come and be evaluated. She was found have an elevated potassium, which was stabilized in the ED. A CT of the abdomen and pelvis did show descending and sigmoid colitis. Patient was admitted with a GI consult as well as IV hydration, antiemetics, and started on IV antibiotics. GI recommendations were to continue with IV hydration as well as antibiotics. Her hematocrit was stable. Clinically, the patient was doing better. They did check stool studies. She will need a colonoscopy on an outpatient basis. GI put the patient on Culturelle b.i.d. as well as Cipro and Flagyl for 7 days after her discharge today as well as continue on MiraLAX twice a day and to hold for 3 bowel movements in 24 hours. Continue on her PPI for 8-12 weeks and then she will switch to Zantac once at bedtime. Continue on Icar C p.o. b.i.d. for mild anemia and follow up with Dr. Sim in 4 weeks after discharge for an outpatient colonoscopy. VITAL SIGNS AT TIME OF DISCHARGE: Temperature is 97.5 degrees, heart rate 51, respirations 16, blood pressure 141/56, and O2 saturation was 99%. DISCHARGE DIET: Diabetic. DISCHARGE MEDICATIONS: 1. Zetia 10 mg p.o. q.a.m. 2. NPH 16 units subcutaneously q.a.m. 3. NPH 8 units subcutaneously q.p.m. 4. Pravachol 40 mg p.o. at bedtime. 5. Protonix 40 mg p.o. daily. 6. Coreg 12.5 mg p.o. q.12 hours. 7. Percocet 1 each p.o. q.4 hours. 8. Cipro 500 mg p.o. b.i.d. 9. Culturelle 1 each p.o. b.i.d. 10. Diazepam 2 mg p.o. t.i.d. 11. Flagyl 500 mg p.o. q.8 hours. 12. MiraLAX 17 g p.o. b.i.d. FOLLOWUP: The patient is being discharged home. She is to follow up with her primary care physician, Dr. Dionicio Velasquez, as well as Dr. Hussein Sim in 4 weeks. In reference to her bilateral hydronephrosis from the kidneys down to the iliac vessels, Dr. Ochoa did see the patient. The plan was to do nothing because the patient wanted nothing done, no evidence that intervention was going to help. She did have a normal BUN and creatinine at the moment, and she does follow with Dr. Gonzales. The patient will also need to follow up with Dr. Gonzales. The patient can return to the ED for any worsening of symptoms. DISCHARGE TIME: Greater than 30 minutes. Dictated by MAGGIE Carrasco for Marco Oconnor MD
--- NOTE | 2017-02-02 14:24 | DISCHARGE SUMMARY ---
ADMISSION DATE: 01/19/2017 DISCHARGE DATE: 01/22/2017 DISCHARGE SUMMARY ADDENDUM: Please add the following diagnosis: Descending and sigmoid colitis, bacterial.
== END 2017-01-22 13:12 | disposition home or self-care (01) | DRG 372 ==
LOC: ED 17:02 → EDIPHOLD 23:48 → 3N 01-20 11:45
PROVIDERS: ATTEND Internal Medicine
DX: A04.9 Bacterial intestinal infection, unspecified (principal); N17.9 Acute kidney failure, unspecified; E89.6 Postprocedural adrenocortical (-medullary) hypofunction; E11.51 Type 2 diabetes mellitus with diabetic peripheral angiopathy without gangrene; N13.30 Unspecified hydronephrosis; E87.5 Hyperkalemia; D64.9 Anemia, unspecified; I10 Essential (primary) hypertension; E03.9 Hypothyroidism, unspecified; E78.5 Hyperlipidemia, unspecified; K21.9 Gastro-esophageal reflux disease without esophagitis; I25.10 Atherosclerotic heart disease of native coronary artery without angina pectoris; F41.8 Other specified anxiety disorders; K57.30 Diverticulosis of large intestine without perforation or abscess without bleeding; K59.00 Constipation, unspecified; Z90.81 Acquired absence of spleen; Z90.411 Acquired partial absence of pancreas; Z82.49 Family history of ischemic heart disease and other diseases of the circulatory system; Z79.4 Long term (current) use of insulin; Z79.899 Other long term (current) drug therapy; Z85.89 Personal history of malignant neoplasm of other organs and systems; Z95.1 Presence of aortocoronary bypass graft; Z87.891 Personal history of nicotine dependence; Z83.3 Family history of diabetes mellitus; Z80.9 Family history of malignant neoplasm, unspecified
CPT/HCPCS: 36415; 74176; 80048; 80053; 81001; 82150; 82948; 83630; 83690; 84132; 84443; 85025; 87045; 87046; 87324; 96365; 96366; 96367; 96375; J0744; J1170; J2405; J7030; S0030